=== PATIENT | female | born 1990 | race Caucasian/White ===

== ENCOUNTER 2022-07-23 13:08 | Outpatient (CLI) | payer BC ==
[~2022-07-23 13:08] MED LIST: Iopamidol 300 61% 50 ML VIAL FS ONE
== END 2022-07-23 13:09 | disposition home or self-care (01) ==
LOC: CSHRAD 13:08
PROVIDERS: ATTEND Obstetrics & Gynecology
DX: Z31.9 Encounter for procreative management, unspecified (principal)
CPT/HCPCS: 58340; 74740; Q9967

== ENCOUNTER 2023-12-24 15:12 | Day surgery (SDC) | payer BC ==
[2023-12-24] MEDS ORDERED: hydrALAZINE 20 MG/ML VIAL SLOW IVP PRN (15:17)
[2023-12-24 16:05] LABS: #Basophils 0.04 10x3/uL (0.0-0.2); #Eosinphils 0.04 10x3/uL (0.0-0.5); #Monocytes 0.72 10x3/uL (0.0-1.1); #Neutrophils 10.83 10x3/uL (1.5-8.4); %Basophils 0.3 % (0.0-2.0); %Eosinophils 0.3 % (0.0-6.0); %Lymphocytes 18.4 % (18.0-47.0); %Neutrophils 74.9 % (40.0-75.0); Hematocrit 37.1 % (34.9-44.5); Hemoglobin 12.5 g/dL (12.0-15.5); Mean Corpuscular HGB CONC 33.7 g/dL (32.0-36.0); Mean Corpuscular Hemoglobin 29.9 pg (27.0-33.0); Mean Corpuscular Volume 88.8 fL (81.6-98.3); Mean Platelet Volume 9.3 fL (7.4-10.4); Platelet Count 289 10x3/uL (150-450); Red Blood Cell (RBC) Count 4.18 10x6/uL (3.90-5.03); White Blood Cell (WBC) Count 14.5 10x3/uL (3.5-10.5)
[2023-12-24 16:25] LABS: ALT (SGPT) 15 U/L (8-55); AST (SGOT) 24 U/L (5-34); Alkaline Phosphatase 73 U/L (40-110); Anion Gap 13 mmol/L (10-20); BUN (Urea Nitrogen) 7 mg/dL (7.0-18.7); Bilirubin, Total 0.2 mg/dL (0.2-1.2); Calc. Creatinine Clearance 0 mL/min (70-130); Calcium 9.5 mg/dL (7.8-10.44); Carbon Dioxide 20 mmol/L (22-29); Chloride 110 mmol/L (98-107); Estimated GFR 118; Globulin 3.8 g/dL (2.4-3.5); Glucose 117 mg/dL (70-105); Protein, Total 6.8 g/dL (6.0-8.3); Sodium 139 mmol/L (136-145)
[2023-12-24 16:47] LABS: Creatinine, Urine 63.19 mg/dL (47-110); Protein, Urine Random Quant Less than 10 mg/dL (1-14)
== END 2023-12-24 16:40 | disposition home or self-care (01) ==
LOC: CSHLD/OP 15:12
PROVIDERS: ATTEND Obstetrics & Gynecology
DX: O36.8130 Decreased fetal movements, third trimester, not applicable or unspecified (principal); O44.03 Complete placenta previa NOS or without hemorrhage, third trimester; Z79.899 Other long term (current) drug therapy; Z98.890 Other specified postprocedural states; Z3A.29 29 weeks gestation of pregnancy
CPT/HCPCS: 76819; 80053; 82570; 84156; 85025; 99283

== ENCOUNTER 2024-03-08 21:36 | Emergency (ER) | payer BC ==
[2024-03-08 23:01] LABS: #Basophils 0.07 10x3/uL (0.0-0.2); #Eosinphils 0.58 10x3/uL (0.0-0.5); #Monocytes 0.65 10x3/uL (0.0-1.1); #Neutrophils 6.47 10x3/uL (1.5-8.4); %Basophils 0.6 % (0.0-2.0); %Eosinophils 5.1 % (0.0-6.0); %Lymphocytes 30.8 % (18.0-47.0); %Monocytes 5.7 % (0.0-10.0); %Neutrophils 56.9 % (40.0-75.0); Hemoglobin 8.9 g/dL (12.0-15.5); Mean Corpuscular HGB CONC 31.8 g/dL (32.0-36.0); Mean Corpuscular Hemoglobin 27.1 pg (27.0-33.0); Mean Corpuscular Volume 85.4 fL (81.6-98.3); Mean Platelet Volume 8.7 fL (7.4-10.4); Platelet Count 360 10x3/uL (150-450); RBC Distribution Width 15.4 % (11.5-14.5); Red Blood Cell (RBC) Count 3.28 10x6/uL (3.90-5.03); White Blood Cell (WBC) Count 11.4 10x3/uL (3.5-10.5)
[2024-03-08 23:13] LABS: ALT (SGPT) 40 U/L (8-55); AST (SGOT) 27 U/L (5-34); Albumin 3.1 g/dL (3.5-5.0); Alkaline Phosphatase 119 U/L (40-110); Anion Gap 16 mmol/L (10-20); BUN (Urea Nitrogen) 14 mg/dL (7.0-18.7); Bilirubin, Total 0.2 mg/dL (0.2-1.2); Calc. Creatinine Clearance 0 mL/min (70-130); Calcium 8.9 mg/dL (7.8-10.44); Carbon Dioxide 20 mmol/L (22-29); Chloride 108 mmol/L (98-107); Estimated GFR 96; Globulin 3.3 g/dL (2.4-3.5); Glucose 108 mg/dL (70-105); Potassium 3.7 mmol/L (3.5-5.1); Protein, Total 6.4 g/dL (6.0-8.3); Sodium 140 mmol/L (136-145)
[2024-03-08] MEDS ORDERED: Prochlorperazine 10 MG/2 ML VIAL ONE (23:31)
[2024-03-08] MEDS ORDERED: diphenhydrAMINE 50 MG/ML VIAL ONE (23:31)
[2024-03-08] MEDS ORDERED: Magnesium 2 GM/50 ML BAG (IN WATER) ONE (23:31)
[2024-03-08 23:39] LABS: Bilirubin Neg (Negative); Blood, Urine 250 (Negative); Glucose, Urine (Dipstick) Normal (Negative); Ketone, Urine Negative (Negative); Leukocyte 500 (Negative); Nitrite Negative (Negative); Protein, Urine (Dipstick) Negative (Neg-Trace); Urobilinogen Normal mg/dL (Less than 2)
[2024-03-08 23:40] LABS: Clarity Clear (Clear)
[2024-03-08 23:41] LABS: Acetaminophen Less than 10 mcg/mL (Less than 10); Alcohol Less than 10.0 mg/dL (Less than 10); Lipase 70 U/L (8-78); Magnesium 1.8 mg/dL (1.6-2.6); Salicylate Less than 8.0 mg/dL (Less than 8.0)
[2024-03-08 23:47] LABS: Amphetamine Not Detected (NotDetected); Barbiturates Screen Not Detected (NotDetected); Benzodiazepine Screen Not Detected (NotDetected); Cocaine Metabolite Screen Not Detected (NotDetected); Methadone Not Detected (NotDetected); Methamphetamine Not Detected (NotDetected); Opiate Screen Not Detected (NotDetected); Oxycodone Screen Not Detected (NotDetected); Phencyclidine (PCP) Not Detected (NotDetected); THC/Cannabinoid Screen Not Detected (NotDetected); Tricyclic Screen Not Detected (NotDetected)
[2024-03-08 23:50] LABS: Bacteria/HPF None Seen HPF (None Seen); CAUTI Indications for Culture Alt mental st,lethar; RBC/HPF 0-3 HPF (0-3); Squamous Epithelial 0-3 HPF (0-3); Urine Culture Reflex No No
== END 2024-03-09 02:10 | disposition home or self-care (01) ==
LOC: CSHERS 21:36
DX: O90.89 Other complications of the puerperium, not elsewhere classified (principal); G43.909 Migraine, unspecified, not intractable, without status migrainosus; L29.9 Pruritus, unspecified; F30.8 Other manic episodes
CPT/HCPCS: 70450; 71045; 80053; 80306; 80307; 81001; 83605; 83690; 83735; 85025; 93005; 96361; 96374; 96375; J0780; J1200; J3475